=== PATIENT | female | born 1970 | race Caucasian/White ===

== ENCOUNTER → 2024-06-15 11:45 | Outpatient (REF) | payer OTHER, SELFPAY ==
[2024-06-15 19:13] LABS: Rubella Positive
[2024-06-17 19:50] LABS: Quantiferon Plus TB1 minus NIL 0.01 IU/mL (<=0.34); Quantiferon Plus TB2 minus NIL 0.01 IU/mL (<=0.34); Quantiferon TB Gold Plus Negative (Negative)
== END ==
LOC: REG 11:45
PROVIDERS: ATTENDING PHYSICIAN Nurse Practitioner Family
DX: Z23 Encounter for immunization (principal)
CPT/HCPCS: 36415; 86480; 86735; 86762; 86765; 86787